=== PATIENT | female | born 2000 | race Caucasian/White ===

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

== ENCOUNTER 2022-03-01 16:50 | Inpatient (IN) | payer OTHER, SELFPAY ==
[2022-03-01] VITALS (10 sets, daily range): BP systolic 101–125; BP diastolic 63–80; PULSE 76–94; TEMP 36.6; BMI 30.2
--- NOTE | 2022-03-01 17:20 | LDADM ---
This patient, Jaylene Coleman, was admitted to Labor/Delivery/Recovery 109 on 03/01/22 at 16:50. Plans for labor, pain management and were discussed with patient. Patient/family oriented to hospital policies and general routines including ID bracelet, bed and alarms, visiting hours, pain management, procedures, bathroom and other care routines, personal items, smoking policy, room service/diet and guest tray routines, security routines, and visiting hours. Patient/Family are encouraged to report perceived risks to care and to ask questions if they do not understand what they are told or what they should do. See OBIX for further documentation.
--- NOTE | 2022-03-01 17:36 | WPDANESEPP ---
Anes - Eval Pre Procedure Procedure: labor epidural Date/Time: 03/01/22 17:36 Surgeon: shai Preop Diagnosis: pain during labor Pre Op Diagnosis: IOL Patient Data Age: 21 Gender: F Height: 1.63 m Weight: 80 kg Last Vital Signs O2 Del Method Room Air 03/01/22 17:19 Allergies Allergy/AdvReac Type Severity Reaction Status Date / Time No Known Allergies Allergy Verified 02/20/22 09:27 Home Medications Medication Instructions Recorded Confirmed Type prenat.vits,ashley,[id number]-[id number] 1 tablet PO DAILY 09/27/21 12/01/21 History ferrous sulfate 325 mg (65 mg 325 mg PO DAILY #30 tabs 10/25/21 12/01/21 Rx iron) tablet famotidine 20 mg tablet (Acid 20 mg PO DAILY #90 tabs 11/24/21 12/01/21 Rx Cosmetic Account Coordinator (famotidine)) Patient hx anesthesia problems: none Family hx anesthesia problems: none Results Review: All pre-operative results and documents have been reviewed as part of the pre-operative evaluation. [facility] Past Medical History Medical History (Updated 03/01/22 @ 17:37 by Rosa Butterfield CRNA) Anemia Anxiety Depression GERD (gastroesophageal reflux disease) Obesity (BMI 30-39.9) Family History Family History (Updated 02/09/22 @ 12:59 by Juan Manuel Gould RN) Father No problems noted. Grandparent Carcinoma of colon Grandparent Cervical cancer Social History Social History Smoking status: Never smoker Alcohol intake: never Substance use: never Gender identity (if verbalized by the patient): Female Spiritual care concerns: No Exam Day of Procedure 03/01/22 17:36
[2022-03-01] MEDS: DINOPROSTONE 10 MG VAG INSERT VAGINAL (17:48)
[2022-03-01 18:58] LABS: Basophils Percent Auto 0.4 % (0.2-1.2); Eosinophils Absolute Auto 0.1 K/mm3 (0-0.3); Eosinophils Percent Auto 1.8 % (0-4.4); Hematocrit 36.4 % (37.0-47.0); Hemoglobin 11.7 g/dL (12.0-15.0); Immature Granulocyte Absolute 0.03 K/mm3 (0.00-0.031); Immature Granulocyte Percent A 0.4 % (0-0.5); Lymphocytes Absolute Auto 1.83 K/mm3 (0.9-3.2); Lymphocytes Percent Auto 26.8 % (18.3-44.2); Mean Corpuscular HGB Conc 32.1 g/dl (32-36); Mean Corpuscular Hemoglobin 28.9 pg (26-34); Mean Corpuscular Volume 89.9 fl (80-100); Mean Platelet Volume 9.8 fl (7.4-10.4); Monocytes Absolute Auto 0.9 K/mm3 (0.1-0.6); Monocytes Percent Auto 12.8 % (2.6-8.5); Neutrophils Absolute Auto 3.9 K/mm3 (1.3-6.7); Neutrophils Percent Auto 57.8 % (45.5-73.1); Platelet Count Result 231 k/mm3 (150-375); Red Blood Count 4.05 M/mm3 (4.2-5.4); Red Cell Distribution Width 13.8 % (11.5-14.5); White Blood Count 6.8 K/mm3 (4.5-10.0)
[2022-03-02] VITALS (17 sets, daily range): BP systolic 98–121; BP diastolic 48–80; PULSE 63–104; TEMP 36.5–36.7
[2022-03-02] MEDS: miSOPROStol 25 MCG TABLET VAGINAL (08:22)
--- NOTE | 2022-03-02 08:27 | PM.IMHP ---
H&P: HPI History of Present Illness Date/Time: 03/02/22 08:27 Chief Complaint: elective induction of labor Narrative: Jaylene is a 21yo @ 39.2wks who was admitted overnight for elective induction of labor. She had cervidil and only advanced to 1cm. She was counseled on option to leave or try misoprostol as she didn't have much change in cervical exam. Baby has been reassuring and having some uterine irritability. Good movement. Her has been complicated by: - Anemia on iron - Late [place] -- in Review of Systems Review of Systems: All systems reviewed & are unremarkable except as noted in HPI and below PMFSH Past Medical History Medical History Anemia Anxiety Depression GERD (gastroesophageal reflux disease) Obesity (BMI 30-39.9) Family History Family History Father No problems noted. Grandparent Carcinoma of colon Grandparent Cervical cancer Social History Social History Smoking status: Never smoker Alcohol intake: never Substance use: never Gender identity (if verbalized by the patient): Female Spiritual care concerns: No Meds Home Medications and Allergies Home Medications Medication Instructions Recorded Confirmed Type prenat.vits,ashley,qpa-[id number] 1 tablet PO DAILY 09/27/21 12/01/21 History ferrous sulfate 325 mg (65 mg 325 mg PO DAILY #30 tabs 10/25/21 12/01/21 Rx iron) tablet famotidine 20 mg tablet (Acid 20 mg PO DAILY #90 tabs 11/24/21 12/01/21 Rx Peoplesoft Developer (famotidine)) Allergies Allergy/AdvReac Type Severity Reaction Status Date / Time No Known Allergies Allergy Verified 02/20/22 09:27 Vital Signs Vital Signs - 24 hr 03/01/22 17:42 03/01/22 17:45 03/01/22 18:00 Temperature 97.8 F Pulse Rate 84 91 86 Blood Pressure 117/69 119/72 101/76 Oxygen Delivery 03/01/22 18:15 03/01/22 18:30 03/01/22 18:45 Temperature Pulse Rate 94 85 85 Blood Pressure 117/71 114/80 116/79 Oxygen Delivery 03/01/22 19:00 03/01/22 19:15 03/01/22 19:30 Temperature Pulse Rate 82 87 76 Blood Pressure 120/80 109/63 125/74 Oxygen Delivery 03/01/22 19:45 03/02/22 00:20 03/02/22 05:23 Temperature 97.7 F Pulse Rate 76 85 104 H Blood Pressure 122/75 109/55 L 117/80 Oxygen Delivery 03/02/22 05:20 03/02/22 06:11 03/02/22 08:22 Temperature 98.1 F 97.8 F Pulse Rate 90 Blood Pressure 121/77 Oxygen Delivery 03/01/22 17:19 Temperature Pulse Rate Blood Pressure Oxygen Delivery Room Air Exam Const: General: cooperative, healthy appearing, comfortable and no acute distress Resp: Effort & Inspection: normal respiratory effort Cardio: Rate: regular rate GI: Inspection: normal to inspection GI Palp: No abdominal tenderness and Yes Soft to palpation : Other: FHT's: 130's/mod daniel/ + accels/ no decels - cat 1 TOCO: irritability Cervix: 09/03/-3 Membranes: intact Skin: General skin exam: normal color Neuro: General: patient oriented x3 Extrem: General: normal to inspection Psych: Appearance: grossly normal Affect: normal affect Attitude: cooperative H&P: Results Labs Labs: Short CBC 03/01/22 Range/Units 17:38 WBC 6.8 (4.5-10.0) K/mm3 Hgb 11.7 L (12.0-15.0) g/dL Hct 36.4 L (37.0-47.0) % Plt Count 231 (150-375) k/mm3 Assessment and Plan Assessment and plan (1) Encounter for elective induction of labor: Code(s): Z34.90 - Encounter for supervision of normal , unspecified, unspecified trimester Status: Acute Plan - admitted overnight for cervidil w/ minimal change in cervix; discussed trying 1-2 doses of misoprostol, but if still unfavorable, would prefer discharge home and later induction as she is only 39wks (induction was scheduled in hopes that the [facility]
--- NOTE | 2022-03-02 08:38 | WPDHPUPDATE1 ---
History and Physical Update Update Date/Time: 03/02/22 08:38 History and Physical has been reviewed, including an updated exam of the patient. There are NO changes in the patient's condition. Risks, benefits, and alternatives have been discussed and questions answered. Patient agrees to proceed with procedure.
[2022-03-02] MEDS: ACETAMINOPHEN 500 MG TABLET 1000 MG PO (08:43)
--- NOTE | 2022-03-02 13:36 | PC.NURSE ---
Dr. Garcia updated on pt cervical exam. Order received for pt to be discharged as a failed induction and to call the office on Saturday to schedule an appointment to be seen in the office.
[2022-03-02 16:31] LABS: Rapid Plasma Reagin Non-Reactive (NonReactive)
--- NOTE | 2022-03-07 07:48 | PM.OBDSVD ---
DS: Admitting Diagnosis Discharge Date 03/02/22 Admitting Diagnosis elective induction of labor DS: Discharge Diagnosis Discharge Diagnosis Plan unfavorable cervix at 39wks OB - DS: Summary OB Procedures : Ultrasound OB Procedures Intrapartum: Other (s/p cervidil and misoprostol w/o change in cervix and discharged home as it was an elective IOL) OB Procedures: : None Status at Discharge Functional status at discharge: independent ambulation Overall status at discharge: patient is back to baseline Time Spent with Patient Time attestation: Total time spent providing and/or coordinating discharge services: Time spent: Less than 30 minutes Exam Const: General: cooperative, healthy appearing, comfortable and no acute distress Resp: Effort & Inspection: normal respiratory effort Cardio: Rate: regular rate GI: GI Palp: No abdominal tenderness and Yes Soft to palpation : Other: FHT's: category 1 tracing w/o any decelerations TOCO; irregular Cervix: 1/thick/high Membrane: intact GBS Neg Skin: General skin exam: normal color Neuro: General: patient oriented x3 Extrem: General: normal to inspection Psych: Appearance: grossly normal Affect: normal affect Attitude: cooperative Discharge Plan Discharge Attending physician on discharge: Renetta Garcia Consulting providers: Rosa Butterfield Discharging Clinician: Renetta Garcia Patient Disposition: Home, Self-Care Activity: as tolerated Diet: as tolerated and regular Discharge Instructions: OB ANTEPARTUM DISCHARGE INSTRUCTIONS This information is given to help you properly care for yourself at home after your discharge from the hospital. Follow these instructions until your doctor tells you otherwise. DIET: Eat Three Well Balanced Meals per Day Small Frequent Feedings Drink at Least Eight 8-Ounce Glasses of Caffeine-Free Beverages Daily Additional Diet Instructions: ACTIVITY: As Tolerated Additional Activity Instructions: RETURN TO LABOR AND DELIVERY IF YOU HAVE: Any Change In Baby's Normal Movement Pattern Any Leakage of Fluid Contractions 3-5 Minutes Apart with Increasing Intensity Vaginal Bleeding Additional Reasons to Return to Labor and Delivery: Contractions may feel like abdominal pain, tightening, cramping, pressure, back ache, or thigh ache. FOLLOW-UP CARE: Call Office and Make Appointment To see schedule appointment for sat or sat next week in/on Valuables released to patient or family? N/A Medications from home returned to patient? N/A I Acknowledge Receipt of and Understand the Above Instructions IF YOU HAVE ANY QUESTIONS REGARDING THESE INSTRUCTIONS, PLEASE CALL [phone]. IF PROBLEMS ARISE, CALL YOUR PROVIDER. IF EMERGENCY CARE IS NEEDED, [facility] EMERGENCY ROOM IS AVAILABLE 24 HOURS A DAY. Stand Alone Forms: General Discharge Information Follow-up/Referrals: Renetta Garcia MD [Physician] - Discharge Medications: Continued prenat.vits,ashley,[id number]-[id number] Tablet 1 tablet PO DAILY ferrous sulfate 325 mg (65 mg iron) tablet 325 mg PO DAILY Qty: 30 1RF Rx Instructions: Needs to take iron 1x daily opposite of vitamin famotidine [Acid Porcelain Enameling Supervisor (famotidine)] 20 mg tablet 20 mg PO DAILY Qty: 90 2RF Date of admission: 03/01/22 16:50 Primary Care Provider: PHYSICIAN,DESIGN/ANIMATION INSTRUCTOR Admitting Provider: Renetta Garcia Attending physician on admission: Renetta Garcia Condition: Stable
== END 2022-03-02 14:16 | disposition home or self-care (01) | DRG 833 ==
PROVIDERS: Admitting Provider Obstetrics & Gynecology; Visit Provider Obstetrics & Gynecology
DX: O99.013 Anemia complicating pregnancy, third trimester (principal); Z3A.39 39 weeks gestation of pregnancy; O99.613 Diseases of the digestive system complicating pregnancy, third trimester; K21.9 Gastro-esophageal reflux disease without esophagitis
CPT/HCPCS: 36415; 85025; 86592; 86850; 86900; 86901; A9270

== ENCOUNTER 2022-03-08 16:37 | Observation (INO) | payer OTHER, SELFPAY ==
--- NOTE | 2022-03-08 18:20 | OBADM ---
This patient, Jaylene Coleman, admitted to the OB room Labor/Delivery/Recovery 106 for observation. Patient/family oriented to hospital policies and general routines including ID bracelet, bed and alarms, visiting hours, pain management, procedures, bathroom and other care routines, personal items, smoking policy, room service/diet, and visiting hours. Patient/Family are encouraged to report perceived risks to care and to ask questions if they do not understand what they are told or what they should do.
--- NOTE | 2022-03-09 10:59 | PM.OBTRLD ---
OB - Triage/Final Diagnosis Visit Information Comments/Additional reasons for admission: I have assessed the risk for this patient, Jaylene Coleman, and determined that she would benefit from observation care. Final Diagnosis (1) Irregular contractions: Code(s): O47.9 - False labor, unspecified Status: Acute
== END 2022-03-08 18:26 | disposition home or self-care (01) ==
PROVIDERS: Admitting Provider Obstetrics & Gynecology; Visit Provider Obstetrics & Gynecology
DX: O47.9 False labor, unspecified (principal); Z3A.00 Weeks of gestation of pregnancy not specified
CPT/HCPCS: G0378; G0379

== ENCOUNTER 2022-03-08 23:12 | Inpatient (IN) | payer OTHER, SELFPAY ==
--- NOTE | 2022-03-08 23:12 | LDADM ---
This patient, Jaylene Coleman, was admitted to Labor/Delivery/Recovery 104 on 03/08/22 at 23:12. Plans for labor, pain management and were discussed with patient. Patient/family oriented to hospital policies and general routines including ID bracelet, bed and alarms, visiting hours, pain management, procedures, bathroom and other care routines, personal items, smoking policy, room service/diet and guest tray routines, security routines, and visiting hours. Patient/Family are encouraged to report perceived risks to care and to ask questions if they do not understand what they are told or what they should do. See OBIX for further documentation.
[2022-03-08 23:30] VITALS: BP 119/70; PULSE 84
[2022-03-08] MEDS: LACTATED RINGERS 1,000 ML 125 ML IV CONT (23:44)
[2022-03-08 23:45] VITALS: BP 126/85; PULSE 75
[2022-03-08] MEDS: fentaNYL CITRATE INJ (*CRX) 100 MCG/2 ML VIAL IV PUSH (23:45)
[2022-03-08 23:49] LABS: Basophils Percent Auto 0.3 % (0.2-1.2); Hematocrit 36.3 % (37.0-47.0); Hemoglobin 11.9 g/dL (12.0-15.0); Immature Granulocyte Absolute 0.02 K/mm3 (0.00-0.031); Immature Granulocyte Percent A 0.3 % (0-0.5); Lymphocytes Absolute Auto 1.17 K/mm3 (0.9-3.2); Mean Corpuscular HGB Conc 32.8 g/dl (32-36); Mean Corpuscular Hemoglobin 28.6 pg (26-34); Mean Corpuscular Volume 87.3 fl (80-100); Monocytes Absolute Auto 0.6 K/mm3 (0.1-0.6); Monocytes Percent Auto 9.4 % (2.6-8.5); Neutrophils Absolute Auto 4.1 K/mm3 (1.3-6.7); Platelet Count Result 175 k/mm3 (150-375); Red Blood Count 4.16 M/mm3 (4.2-5.4); Red Cell Distribution Width 13.4 % (11.5-14.5); White Blood Count 5.9 K/mm3 (4.5-10.0)
[2022-03-09] VITALS (95 sets, daily range): BP systolic 91–140; BP diastolic 45–112; PULSE 60–167; RESP 16; TEMP 36.4–37.4; O2SAT 94–100; BMI 30.6
--- NOTE | 2022-03-09 00:03 | WPDANESEPP ---
Anes - Eval Pre Procedure Procedure: labor epidural Date/Time: 03/09/22 00:03 Surgeon: shai Pre Op Diagnosis: Contractions Patient Data Age: 21 Gender: F Height: Weight: Last Vital Signs Pulse 60 03/09/22 00:00 BP 109/66 03/09/22 00:00 Allergies Allergy/AdvReac Type Severity Reaction Status Date / Time No Known Allergies Allergy Verified 02/20/22 09:27 Home Medications Medication Instructions Recorded Confirmed Type prenat.vits,ashley,seg-uwxj-icjny 1 tablet PO DAILY 09/27/21 12/01/21 History ferrous sulfate 325 mg (65 mg 325 mg PO DAILY #30 tabs 10/25/21 12/01/21 Rx iron) tablet famotidine 20 mg tablet (Acid 20 mg PO DAILY #90 tabs 11/24/21 12/01/21 Rx Senior Manufacturing Test Engineer (famotidine)) Laboratory Tests 03/08/22 03/08/22 23:43 23:43 WBC 5.9 K/mm3 K/mm3 (4.5-10.0) RBC 4.16 M/mm3 L M/mm3 (4.2-5.4) Hgb 11.9 g/dL L g/dL (12.0-15.0) Hct 36.3 % L % (37.0-47.0) MCV 87.3 fl fl (80-100) MCH 28.6 pg pg (26-34) MCHC 32.8 g/dl g/dl (32-36) RDW 13.4 % % (11.5-14.5) Plt Count 175 k/mm3 k/mm3 (150-375) MPV 10.0 fl fl (7.4-10.4) Immature Gran % (Auto) 0.3 % % (0-0.5) Neut % (Auto) 70.0 % % (45.5-73.1) Lymph % (Auto) 20.0 % % (18.3-44.2) [place] % (Auto) 9.4 % H % (2.6-8.5) Eos % (Auto) 0.0 % % (0-4.4) Baso % (Auto) 0.3 % % (0.2-1.2) Lymph # (Auto) 1.17 K/mm3 K/mm3 (0.9-3.2) [place] # (Auto) 0.6 K/mm3 K/mm3 (0.1-0.6) Eos # (Auto) 0.0 K/mm3 K/mm3 (0-0.3) Baso # (Auto) 0.0 K/mm3 K/mm3 (0.0-0.1) Abs Immat Gran (auto) 0.02 K/mm3 K/mm3 (0.00-0.031) Absolute Neuts (auto) 4.1 K/mm3 K/mm3 (1.3-6.7) Absolute Nucleated RBC 0.0 K/mm3 K/mm3 (0.0-0.012) Nucleated RBC % 0.0 % % (0.0-0.2) RPR Pending Patient hx anesthesia problems: none Family hx anesthesia problems: none Results Review: All pre-operative results and documents have been reviewed as part of the pre-operative evaluation. [facility] Past Medical History Medical History Anemia Anxiety Depression GERD (gastroesophageal reflux disease) Obesity (BMI 30-39.9) Family History Family History Father No problems noted. Grandparent Carcinoma of colon Grandparent Cervical cancer Social History Social History Smoking status: Never smoker Alcohol intake: never Substance use: never Gender identity (if verbalized by the patient): Female Spiritual care concerns: No Exam Day of Procedure 03/09/22 00:03
[2022-03-09] MEDS: LACTATED RINGERS 1,000 ML 125 ML IV CONT (00:04)
[2022-03-09] MEDS: FAMOTIDINE 20 MG TABLET PO (03:35)
[2022-03-09] MEDS: OXYTOCIN 30 UNITS/NS 500 ML 30 UNITS/500 ML BAG 999 UNITS IV CONT (04:05)
--- NOTE | 2022-03-09 04:21 | P.PCNOB_ITS ---
OB - Delivery Note Procedure Delivery monitor: External FHT and External Uterine Route of delivery: Episiotomy description: None Laceration Description: Perineal - 2nd Degree Delivery repair: chromic Specimen: Yes (Placenta due to meconium stained fluid) Quantitative Blood Loss (ml): 500 Anesthesia type: Epidural Disposition: Floor Complications: none Narrative: patient prepped in usual manner for this procedure. Maternal expulsive efforts delivered vertex over intact perineum. Nuchal cord was reduced and the rest of baby delivered without difficulty. Placenta delivered as well. And uterus was well contracted. Cervix vagina vulva were inspected with a second- degree midline laceration with a right vaginal wall laceration extension. The laceration extension was approximated using 2-0 chromic in a running interlocking manner and the vaginal tissue was approximated in the same way. Once this was reapproximated the deep tissue was approximated using interrupted 2-0 chromic sutures to close the space, and subcuticular layer to approximate the perineum. At this point there was no bleeding and the anatomy had been restored. Immediate postoperative condition of mother and baby were both excellent. [place] Baby Weeks of gestation at delivery: 40 gender: Female Weight (pounds): 7 Weight (ounces): 13 presentation: vertex Placenta delivery description: Spontaneous Cord Vessel Description: 3 Vessels score one minute: 8 score five minutes: 9 AMG Delivery Billing Delivery Delivery: Delivery Charge
--- NOTE | 2022-03-09 04:21 | WPDHPUPDATE1 ---
History and Physical Update Update Date/Time: 03/09/22 04:21 History and Physical has been reviewed, including an updated exam of the patient. There are NO changes in the patient's condition. Risks, benefits, and alternatives have been discussed and questions answered. Patient agrees to proceed with procedure.
--- NOTE | 2022-03-09 04:21 | WPDOBADMIT ---
Obstetrics - Admit Note Admission Note: record reviewed. No pertinent additions to the history and/or any subsequent changes in the physical findings that are not consistent with the expected course of the were found. Additions to the history and/or subsequent changes in the physical findings follow. None.
[2022-03-09] MEDS: OXYTOCIN 30 UNITS/NS 500 ML 30 UNITS/500 ML BAG 125 UNITS IV CONT (04:43)
--- NOTE | 2022-03-09 08:20 | PC.NURSE ---
Patient transferred to post room #284 via wheelchair. Support person present. Oriented to unit, room, information board, rooming in, admission packet and security measures. Patient verbalizes understanding.
[2022-03-09] MEDS: IBUPROFEN 600 MG TABLET PO ×2 (09:26→17:01)
--- NOTE | 2022-03-09 10:20 | PC.NURSE ---
[id number] Consulted with patient to assess needs related to . Mother led conversation with her experience with feeding baby so far. Mother works well with her with encouragement. Mother states if her baby doesn't latch she will give baby the instant formula that the staff gave her. Reviewed milk production and how to protect her milk supply if her is receiving a bottle. Reviewed working with infant, breast, nipples and how to protect the nipples with an optimal deep latch, good positioning, and good hand washing. Encouraged understanding the benefits of skin to skin, responding to feeding cues, frequencies of feeding 8-12 times in 24 hours (approximately 2-3 hours), duration of feedings, milk production, intake/output feeding sheet and signs of adequate intake encouraging swallowing at the breast. Reviewed positioning and alignment, supporting breast, off-centered (asymmetrical latch) and leading with the chin with big open wide gape. Infant latched optimally to the left breast in football position. Education given to mother of how to visualize suck/swallow ratios and drinking at the breast. was able to maintain latch without discomfort to mother for 15 minutes and nipple was not misshaped when infant self detached. Nipple care reviewed with optimal latch and good positioning, comfort, healing with warm, wet washcloth to rinse breast, then leave open to air-dry, colostrum may be left on nipples to dry but have clean hands when touching the nipple/breast as needed. Assisted mother with her W.I.C. support person and mother states she is to go by the office today and pick up operator her pump. Infant is skin to skin with mother with the hands relaxed. Resources used to facilitate learning were used from the tool/mom and baby guide. Mother voiced understanding of the education shared, calling for assistance if the infant does not latch or if there is discomfort with . Reported to the primary RN.
--- NOTE | 2022-03-09 10:58 | PC.NURSE ---
0900 - Introductions were made. Mother is resting and states she is uncomfortable. Visitor is holding infant. Resources provided for inpatient and outpatient services using a resource guide and mom/baby guide. Mother voiced understanding of information and will call if there is a request for assistance. Mother doesn't request assistance from RN at this time but request her primary nurse. Reported to primary RN of introduction and patient is uncomfortable.
[2022-03-09] MEDS: ACETAMINOPHEN 325 MG TABLET 650 MG PO ×2 (11:21→20:14)
[2022-03-09] MEDS: BENZOCAINE 20% AER SPR (*SP) 56 GM CAN 1 SPRAY TOPICAL (11:22)
[2022-03-09] MEDS: WITCH HAZEL 40 PADS 1 PAD TOPICAL (11:22)
[2022-03-09 11:30] LABS: Rapid Plasma Reagin Non-Reactive (NonReactive)
--- NOTE | 2022-03-09 15:06 | PC.NURSE ---
[id number] Introductions were made, then consulted with patient to assess needs related to . Mother works well with her with strong encouragement, demonstration, and education. Encouraged understanding of the benefits of skin to skin (unwrapping and placing vertically on her chest), stimulating infant to breastfeed, responsive feeding, how to watch for early feeding signs, frequency of feeding on demand about every 8-12 times in 24 hours (every 2-3 hours), milk production, duration of feeding, signs of adequate intake/output and how to record on the feeding sheet. Educated and mother returned demonstration of hand expression with no colostrum expressed. Mother states latched on and off at 1330 on the right breast. Reviewed positioning holding with ear, shoulder, hip aligned, supporting the breast with a sandwich hold, asymmetrical latch (off-center), and leading with the chin with a big open side gape. attempts to latch to the left breast in football position but does not maintain latch. sounds stuffy . Education given to mother of how to visualize suck/swallow ratios with good rocking motion dropping jaw a bit lower to swallow, however, does not stay latched long enough to demonstrate. Infant was unable to maintain latch without discomfort to mother. Nipple care reviewed with optimal latch and good positioning. Reviewed good handwashing when or touching the breast/nipples to prevent infection. Resources used to facilitate learning were used with the QR latching & hand expression videos, visual latch handout, tool, mom and baby guide. Mother voiced understanding of responsive feedings, stimulating with skin to skin with massaging touch and talking to to encourage if it has been 2 -3 hours since the start of the last , to call if she wants latch assistance, infant does not latch or there is discomfort with . left skin to skin with mother with a visitor at bedside. Reported to the primary RN.
--- NOTE | 2022-03-09 15:17 | PC.NURSE ---
[id number] Consulted with patient to assess needs related to related to mother stating she would like assistance with latching after visualizing feeding cues. Discussed how to watch for signs of infant getting enough intake by RN's and mother keeping track of wets, stools, weight, jaundice, and blood sugar if infant does not eat. shows no attempts to latch at this time. placed back skin to skin with mother in a laid-back position with a visitor watching for safety. Encouraged pumping 8 times in 24 hours 1-2 times at night if infant continues to struggle with latching effectively. Mother voiced understanding of the education shared, calling for assistance for latching, if the infant does not latch or if there is discomfort with . Reported to the primary RN.
[2022-03-09] MEDS: DOCUSATE SODIUM 100 MG CAPSULE PO (17:01)
[2022-03-10 06:25] LABS: Hemoglobin 7.5 g/dL (12.0-15.0)
--- NOTE | 2022-03-10 07:47 | PM.OBPNVD ---
OB - PN: Subj Subjective Date/time seen: 03/10/22 07:47 21-year-old female day 1 status post vaginal delivery. Minimal bleeding but is experiencing amount amount perineal/hemorrhoid discomfort. Is attempting breast-feeding. Vital signs are stable she is afebrile Abdomen soft nontender day 1 status post vaginal delivery Will discharge her later today, if baby needs to stay due to bilirubin she can either be discharged to no care bed or discharge held until tomorrow based on patient's/staffing desire. Questions have been answered and she will follow-up per routine. OB - PN: Obj Data Labs CBC & Chem 7: 03/10/22 05:13 Labs: Laboratory Results - last 24 hr 03/08/22 03/10/22 23:43 05:13 Hgb 7.5 L D Hct 23.0 L RPR Non-reactive OB - PN A/P Time Spent With Patient Time: Total time spent is greater than 50% in coordination of care (as documented) at patient's floor/unit and/or counseling patient:
--- NOTE | 2022-03-10 07:49 | P.DS_ITS ---
DS: Admitting Diagnosis Discharge Date 03/10/2022 Admitting Diagnosis OB - DS: Summary OB Procedures : None OB Procedures Intrapartum: Spontaneous Vag Delivery OB Procedures: : None Time Spent with Patient Time attestation: Total time spent providing and/or coordinating discharge services: DS: Data Data Completed and Pending Pending studies at discharge: Pending at discharge 03/09/22 04:20 Surgical [PTH] Routine Labs on day of discharge: Labs from last 24 hours 03/10/22 03/08/22 05:13 23:43 Hgb 7.5 L D Hct 23.0 L RPR Non-reactive Discharge Plan Discharge Discharging Clinician: Saul Daniel Patient Disposition: Home, Self-Care Activity: as tolerated Diet: as tolerated Patient Instructions: Antibiotic Form Stand Alone Forms: General Discharge Information Follow-up/Referrals: Renetta Garcia MD [Physician] - 3 Weeks Discharge Medications: New ibuprofen 600 mg Tablet 600 mg PO Q6H PRN (Reason: Cramping) Qty: 30 0RF Continued prenat.vits,ashley,[id number] Tablet 1 tablet PO DAILY ferrous sulfate 325 mg (65 mg iron) tablet 325 mg PO DAILY Qty: 30 1RF Rx Instructions: Needs to take iron 1x daily opposite of vitamin Date of admission: 03/08/22 23:12 Primary Care Provider: PHYSICIAN,DESCRIPTIVE CATALOG LIBRARIAN Admitting Provider: Renetta Garcia Attending physician on admission: Renetta Garcia Condition: Stable
[2022-03-10 08:15] VITALS: PULSE 87; RESP 18; O2SAT 99
[2022-03-10] MEDS: IBUPROFEN 600 MG TABLET PO ×2 (08:15→17:38)
[2022-03-10] MEDS: MULTIVIT/MIN/PREN/FOL AC/IRON TABLET 1 TAB PO (08:16)
[2022-03-10] MEDS: WITCH HAZEL 40 PADS 1 PAD TOPICAL (08:17)
[2022-03-10] MEDS: BENZOCAINE 20% AER SPR (*SP) 56 GM CAN 1 SPRAY TOPICAL (08:17)
[2022-03-10] MEDS: DOCUSATE SODIUM 100 MG CAPSULE PO ×2 (08:17→17:38)
[2022-03-10] MEDS: POLYSACCHARIDE IRON COMPLEX 150 MG CAPSULE PO ×2 (08:17→17:38)
--- NOTE | 2022-03-10 09:42 | WPDANLDPN2 ---
Anes-Prog Note L&D Date/Time: 03/10/22 09:42 Comfortable throughout: labor and delivery Neuraxial method: epidural Epidural/Spinal procedure site: clean & non-tender Neuro status: Neuro function grossly intact. Cardiovascular status: normal Respiratory status: normal Airway patency: baseline Mental status: baseline Post-Op hydration status: normal Vital Signs: Last Vital Signs Temp 36.9 C 03/09/22 20:08 Pulse 85 03/09/22 20:08 Resp 16 03/09/22 20:08 BP 94/57 L 03/09/22 20:08 Pulse Ox 99 03/09/22 20:08 O2 Del Method Room Air 03/09/22 00:42 Pain score (VAS): 110 Post-procedural complaints: none Patient feedback: Patient satisfied with anesthetic care.
[2022-03-10 10:05] VITALS: BP 102/52; PULSE 87; RESP 18; TEMP 36.9; O2SAT 99
[2022-03-10 12:00] VITALS: PULSE 87; RESP 18; O2SAT 99
[2022-03-10] MEDS: DIBUCAINE 1% OINTMENT 30 GM TUBE 1 APPLIC TOPICAL (12:42)
--- NOTE | 2022-03-10 13:54 | PC.NURSE ---
Patient viewed the discharge video Mother & Baby Care, The First Two Weeks . Patient was given the opportunity and encouraged to ask questions. Patient verbalized understanding of information shared and has been given the mother/baby guide for home reference.
[2022-03-10 19:18] VITALS: BP 110/66; PULSE 99; RESP 18; TEMP 36.4; O2SAT 100
[2022-03-11 08:25] VITALS: BP 109/65; PULSE 74; RESP 18; TEMP 37.3; O2SAT 100
[2022-03-11] MEDS: MULTIVIT/MIN/PREN/FOL AC/IRON TABLET 1 TAB PO (10:19)
[2022-03-11] MEDS: DOCUSATE SODIUM 100 MG CAPSULE PO (10:19)
[2022-03-11] MEDS: POLYSACCHARIDE IRON COMPLEX 150 MG CAPSULE PO (10:19)
[2022-03-11] MEDS: IBUPROFEN 600 MG TABLET PO (10:20)
[2022-03-11 11:29] VITALS: PULSE 74; RESP 18; O2SAT 100
[2022-03-12 09:59] VITALS: BP 121/75; PULSE 95; RESP 20; TEMP 37.1; O2SAT 99
--- NOTE | 2022-03-13 17:45 | PM.OBDSVD ---
DS: Admitting Diagnosis Discharge Date 03/11/22 Admitting Diagnosis OB - DS: Summary OB Procedures : None OB Procedures Intrapartum: hysterectomy OB Procedures: : None Time Spent with Patient Time attestation: Total time spent providing and/or coordinating discharge services: DS: Data Data Completed and Pending Pending studies at discharge: Pending at discharge 03/09/22 04:20 Surgical [PTH] Routine Discharge Plan Discharge Consulting providers: Oksana Genao ; Kennedi Carballo Discharging Clinician: Saul Daniel Anticipated Discharge Date/Time: 03/11/22 13:00 Patient Disposition: Home, Self-Care Activity: as tolerated Diet: as tolerated Discharge Instructions: Education: Mom and Baby Guide Given to: Mother Follow-Up: Call your delivering provider's office for an appointment to be seen in: 3 weeks Mom and baby should come to the [facility] for the follow-up appointment. Appointment Date/Time: March 12, 2022 at 10:00 am What to expect at your follow-up visit: Blood Pressure Check Physical Assessment Call [phone] if you are unable to keep your appointment time. BREAST CARE: * Wear a snug supportive bra. * For engorgement discomfort: Breast Feeding: * Apply warm moist washcloths * Express milk as needed to relieve engorgement * Wear loose clothing * For sore nipples: * Identify correct latch-on * Apply warm moist washcloths before and after nursing * Air dry nipples after nursing * May apply Lansinoh cream to nipples EPISIOTOMY/PERINEAL CARE: * Until bleeding stops, use your shamar bottle after urinating * Change your pad frequently throughout the day * You may take sitz baths several times a day (fill your bathtub with warm water and soak for 20 minutes.) Do NOT bathe in the water * No tub baths until seen by your physician - You may shower ACTIVITY: * Rest as much as possible. * Do not exercise or lift anything heavier than your baby (such as laundry or other children.) * Avoid stairs or driving as much as possible. * Do not put anything into the vagina. No douching, tampons, or sexual activity until seen by physician. NOTIFY PHYSICIAN IF YOU HAVE ANY QUESTIONS OR IF ANY OF THE FOLLOWING SYMPTOMS OCCUR: * If your vaginal area becomes red, swollen, or more painful than what you have experienced in the hospital. * If your vaginal bleeding becomes foul smelling. * If your vaginal bleeding becomes more heavy than a period or if your bleeding changes from pink to bright red. However, you may pass an occasional walnut-sized clot once or twice for the first week . * If you experience a sharp, shooting pain in your calves. * If you discover a hard, reddened area on your breast or if you experience flu-like symptoms. DIET: * Eat regular, well-balanced meals. * Drink plenty of fluids daily. If , drink to thirst. Patient Instructions: Caring for Your Baby (DC), Vaginal Delivery (DC) Stand Alone Forms: General Discharge Information Follow-up/Referrals: Renetta Garcia MD [Physician] - 3 Weeks Discharge Medications: New ibuprofen 600 mg Tablet 600 mg PO Q6H PRN (Reason: Cramping) Qty: 30 0RF Continued prenat.vits,ashley,[id number] Tablet 1 tablet PO DAILY ferrous sulfate 325 mg (65 mg iron) tablet 325 mg PO DAILY Qty: 30 1RF Rx Instructions: Needs to take iron 1x daily opposite of vitamin Date of admission: 03/08/22 23:12 Primary Care Provider: PHYSICIAN,FLIGHT CONTROL SPECIALIST Admitting Provider: Saul Daniel Attending physician on admission: Saul Daniel Condition: Stable
== END 2022-03-11 14:20 | disposition home or self-care (01) | DRG 807 ==
LOC: ANHLDR 23:47 → ANHOB2 03-10 07:50 → ANHLDR 03-13 07:54
PROVIDERS: Admitting Provider Obstetrics & Gynecology; Visit Provider Obstetrics & Gynecology
DX: O76 Abnormality in fetal heart rate and rhythm complicating labor and delivery (principal); Z37.0 Single live birth; O70.1 Second degree perineal laceration during delivery; O69.1XX0 Labor and delivery complicated by cord around neck, with compression, not applicable or unspecified; O77.0 Labor and delivery complicated by meconium in amniotic fluid; Z3A.40 40 weeks gestation of pregnancy
CPT/HCPCS: 36415; 85014; 85018; 85025; 86592; 86850; 86900; 86901; 88307; A9270; J2590; J2795; J3010; J7120